=== PATIENT | male | born 1995 | race Caucasian/White ===

== ENCOUNTER 2018-07-02 20:20 | Emergency (ER) | payer OTHER ==
[2018-07-02 20:31] VITALS: BP 141/81
[2018-07-02] MEDS ORDERED: HYDROCODONE/ACETAMINOPHEN 5-325 MG (6 TAB/ER DISP) PO PRN (20:46)
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
== END 2018-07-02 20:55 | disposition home or self-care (01) ==
LOC: ER 20:20
DX: S50.12XA Contusion of left forearm, initial encounter (principal); S50.312A Abrasion of left elbow, initial encounter; M79.602 Pain in left arm; M79.89 Other specified soft tissue disorders; Y09 Assault by unspecified means
CPT/HCPCS: 99283